=== PATIENT | male | born 1975 | race African-American/Black ===

== ENCOUNTER 2025-04-06 10:43 | Emergency (ER) | payer BC ==
[~2025-04-06] VITALS: Ht 175.3 cm; Wt 129.3 kg
[2025-04-06] MEDS ORDERED: MORPHINE SULFATE INJ 4 MG/ML DISP.SYRIN ONE (11:31)
[2025-04-06] MEDS ORDERED: ONDANSETRON HCL/PF 4 MG/2 ML VIAL ONE (11:31)
[2025-04-06] MEDS: MORPHINE SULFATE INJ 2 MG/ML DISP.SYRIN IV ONE (11:45)
[2025-04-06] MEDS: ONDANSETRON HCL/PF 4 MG/2 ML VIAL IVP ONE (11:45)
[2025-04-06 12:00] LABS: PLATELET COUNT (AUTO) 340 K/uL (150-450); RED BLOOD CELL COUNT(AUTO) 5.02 MIL/uL (4.5-6.0); RED CELL DISTRIBUTION WIDTH 14.3 % (11.5-15.0); WHITE BLOOD COUNT (AUTO) 10.1 K/uL (4.3-11.0)
[2025-04-06 12:09] LABS: CALCIUM, SERUM 8.9 mg/dL (8.5-10.1); CREATININE 1.0 mg/dL (0.6-1.3); SODIUM SERUM 137.0 mmol/L (136-145); UREA NITROGEN, BLOOD 16.0 mg/dL (7-18)
[2025-04-06] MEDS ORDERED: IV NS 0.9% 250 ML IV ONE (12:26)
[2025-04-06] MEDS ORDERED: CT SWABBABLE VALVE TRANS SET 1 EA INFUS.SET MC ONE (12:26)
[2025-04-06] MEDS ORDERED: IOHEXOL-350 100 ML VIAL IV ONE (12:26)
[2025-04-06] MEDS ORDERED: CLIN300C12 PO (13:54)
[2025-04-06] MEDS ORDERED: ACETAMINOPHEN 325 MG TABLET ONE (14:22)
[2025-04-06] MEDS: ACETAMINOPHEN 325 MG TABLET PO ONE (14:30)
[2025-04-06 14:49] VITALS: BP 135/92; TEMP 98.4; O2SAT 95
== END 2025-04-06 14:50 | disposition home or self-care (01) ==
LOC: ER 11:02
DX: T81.31XA Disruption of external operation (surgical) wound, not elsewhere classified, initial encounter (principal); L76.34 Postprocedural seroma of skin and subcutaneous tissue following other procedure; K21.9 Gastro-esophageal reflux disease without esophagitis; M19.90 Unspecified osteoarthritis, unspecified site; F19.10 Other psychoactive substance abuse, uncomplicated; I10 Essential (primary) hypertension; E78.00 Pure hypercholesterolemia, unspecified; Z88.0 Allergy status to penicillin; Z88.1 Allergy status to other antibiotic agents; Z88.8 Allergy status to other drugs, medicaments and biological substances; Y84.8 Other medical procedures as the cause of abnormal reaction of the patient, or of later complication, without mention of misadventure at the time of the procedure; Y92.89 Other specified places as the place of occurrence of the external cause
CPT/HCPCS: 99285; 96374; 70491; 96375; 85025; 80048; 36415; J2270; J2405; J7050; Q9967